=== PATIENT | female | born 1965 | race Caucasian/White ===

== ENCOUNTER 2017-06-06 13:10 | Emergency (ER) | payer SELFPAY ==
[~2017-06-06] VITALS: Ht 172.7 cm; Wt 114.6 kg
[~2017-06-06 13:10] MED LIST: DOXYCYCL HYC100 M3 PO; LISINOPRIL5 MG PO; MAXZIDE-2537.5 MG/TA; PREDNISONE20 MG PO; VENTOLIN HFA IN
[2017-06-06] MEDS ORDERED: PROAIR HFA IN (14:00)
[2017-06-06] MEDS ORDERED: PROVENTIL0.083 % IN (14:00)
[2017-06-06] MEDS ORDERED: LISINOPRIL10 M1 PO (14:59)
[2017-06-06 17:02] LABS: INFLUENZA A NONE DETECTED (NONE DETECT); INFLUENZA B NONE DETECTED (NONE DETECT)
[2017-06-06] MEDS ORDERED: CEPHALEXIN500 MG PO (17:24)
[2017-06-06] MEDS ORDERED: ROBITUSSIN AC10 ML PO (17:24)
[2017-06-06] MEDS ORDERED: MEDDOSEPAK PO (17:24)
[2017-06-06 17:50] VITALS: BP 129/74
== END 2017-06-06 17:50 | disposition home or self-care (01) | DRG 203 ==
LOC: ED 13:10
PROVIDERS: Emergency Medicine
DX: J40 Bronchitis, not specified as acute or chronic (principal); F17.210 Nicotine dependence, cigarettes, uncomplicated; R05 Cough; R50.9 Fever, unspecified; R06.02 Shortness of breath